=== PATIENT | female | born 1950 | race Caucasian/White ===

== ENCOUNTER 2021-12-07 06:20 | Emergency (ER) | payer MEDICARE, BC, SELFPAY ==
[2021-12-07 06:28] VITALS: BP 151/90; PULSE 73; TEMP 36.7; O2SAT 98; BMI 23.9
--- NOTE | 2021-12-07 06:34 | CRLHL7_ITS ---
For Patients: As a result of the Century Cures Act, medical imaging exams and procedure reports are released immediately into your electronic medical record. You may view this report before your referring provider. If you have questions, please contact your health care provider. INDICATION: Clinical signs and symptoms of acute stroke COMPARISON: February 07, 2019 TECHNIQUE: CT examination of the head was performed as axial sections without intravenous contrast. Images were obtained from the vertex of the skull through the skull base. Please note that all CT scans at this facility use dose modulation, iterative reconstruction, and/or weight-based dosing when appropriate to reduce radiation dose to as low as reasonably achievable. FINDINGS: The brain shows no sign of mass lesion, mass effect, hemorrhage, or edema. The ventricles and sulci are normal in appearance for the patient`s age. The visualized portions of the orbits are normal in appearance. The osseous structures are normal in their appearance with no sign of abnormality in the skull base or calvarium. Intracranial atherosclerosis similar in appearance to the prior exam. Discussed with Dr. Tawanna Su at 7 a.m. on December 07, 2021 IMPRESSION: No acute appearing finding when compared to February 07, [address] scans at this facility use dose modulation, iterative reconstruction, and/or weight-based dosing when appropriate to reduce radiation dose to as low as reasonably achievable. Dictated by Hakeem Yang MD @ 12/07/2021 7:03:17 AM (Electronically Signed)
--- NOTE | 2021-12-07 06:39 | ED.NEUROSD ---
HPI - Neuro Symptoms/Deficit General Time Seen by Provider: 06:30 Date Seen: 12/07/21 Chief Complaint: Neuro Symptoms/Altered Deficit Stated Complaint: Numbness in face and arms Time Seen by Provider: 12/07/21 06:26 Source: patient, RN notes reviewed and old records reviewed Mode of arrival: ambulatory Limitations: no limitations History of Present Illness HPI Narrative: Anju is a very pleasant 71-year-old female, retired pharmacist from [employer], who comes to the emergency room with complaints of sudden onset of right facial numbness, right neck pain and headache. Patient notes that she was up this morning at 0415 had the onset of numbness on her right side of her face. This was associated with some neck pain and is associated with a mild headache on the right side only. She also notes this radiates into her jaw. Patient notes that since December 02 she has been experiencing intermittent tingling of for bilateral 4th and 5th fingers as well as 4th and 5th toes. Right side greater than left side. She notes that she also continues to experience chills and shaking. She notes that these episodes have gotten to be much less but are still continuing. The onset of this was 2 years ago and she was seen at [facility] with full workup with unknown etiology with Neurology and Infectious Disease. One year ago she was flown out of [place] to a hospital with Cardiology while on a horseback riding trip for chest heaviness. She stated that they changed some of her medications but did not find out why she experience that. Patient denies any cough congestion. She will have occasional shortness of breath but nothing consistent. She denies a recent fever. She denies any recent trauma or tick bites. She states that her headache is mild and may be because she has not had morning caffeine as of yet. She has not taken any medications this morning. Patient does note that she has an essential tremor which is documented in her chart. She is currently taking atorvastatin metoprolol and hydrochlorothiazide as well as lisinopril aspirin daily. Patient is requesting sed rate for possible rheumatology workup. Also notes recent insurance physical reviewed and elevated proBNP. Related Data Home Medications Medication Instructions Recorded Confirmed aspirin 81 mg capsule 81 mg PO DAILY 12/07/21 12/07/21 atorvastatin 20 mg tablet mg 12/07/21 hydrochlorothiazide 25 mg tablet mg 12/07/21 lisinopril 20 mg tablet mg 12/07/21 metoprolol succinate 50 mg mg PO 12/07/21 tablet,extended release 24 hr mometasone 0.1 % topical ointment topical 12/07/21 Allergies Allergy/AdvReac Type Severity Reaction Status Date / Time Sulfa (Sulfonamide Allergy Mild Verified 12/07/21 07:22 Antibiotics) NSAIDS (Non-Steroidal AdvReac increase Verified 12/07/21 07:22 Anti-Inflamma blood pressure PFSH PFSH Social History Smoking Status: Never smoker How often do you have a drink containing alcohol: 4 or more times a week How many standard drinks containing alcohol do you have on a typical day: 1 or 2 How often do you have six or more drinks on one occasion: Never AUDIT-C Alcohol total score: 4 Non-prescribed substance use: denies use Exam Const: Vital Signs, click to edit/add: Vital Signs - 24 hr 12/07/21 06:28 12/07/21 08:00 12/07/21 07:30 Temperature 98.1 F Pulse Rate [Pulse Oximeter] 73 72 71 Respiratory Rate 18 18 Blood Pressure [Le ft Upper Arm] 151/90 H 145/88 H 147/86 H Pulse Oximetry 98 97 98 Oxygen Delivery Me thod Room Air Room Air Room Air Common normals: oriented x3, no limitations and alert General appearance: cooperative, well kempt and anxious (Initial shaking improved during the course of our discussion.) HENMT: Common normals: normocephalic, head/scalp atraumatic, hearing grossly normal bilaterally, external ears normal, EAC's normal and external nose normal Head and scalp: normocephalic and atraumatic Face and sinus: normal facial exam Nose: external nose normal External ear: external ears normal External auditory canal: EAC's normal Tympanic membrane: TM normal on the right Mouth: oral and palatal mucosa normal and tongue normal Other: Patient is noted to have increased fullness of the right cheek which is chronic for her. Full smile and motor intact on face. No evidence of lesions to indicate shingles Eye: Common normals: PERRL General eye: normal appearance of both eyes Pupil: PERRL Other: Peripheral vision intact. Pupils equal round reactive. EOM is full. Neck & C-Spine: Common normals: full ROM, no lymphadenopathy, supple and no meningeal signs General: trachea midline Other: Mild paracervical muscular tenderness on the right. Range of motion is full. No midline tenderness. Resp: Common normals: normal respiratory effort and clear to auscultation bilaterally Effort & inspection: able to speak in complete sentences Auscultation: clear to auscultation bilaterally Cardio: Common normals: regular rate and regular rhythm Rate: regular rate Rhythm: regular rhythm GI: Common normals: soft to palpation and non-tender Palpation: soft Extremity: Common normals: normal to inspection, full ROM and no pedal edema Neuro: Arlet Coma Scale: document GCS findings Lincoln coma scale eye opening: Spontaneous (4) Lincoln coma scale verbal response: Orientated (5) Lincoln coma scale motor response: Obey commands (6) Lincoln coma scale total score: 15 Common normals: oriented x3 Sensorium/orientation: alert Meningeal signs: no meningeal signs; no nuccal rigidity Coordination/balance: vfcl-di-wuxd test normal Speech: speech normal Motor exam: strength 5/5 throughout Coordination: sohg-jb-toft test normal Psych: Common normals: mental status grossly normal, thought process normal, cooperative and speech normal Appearance: well kempt Activity/motor behavior: appropriate eye contact Speech: normal speech Thought process: normal thought process Thought content: normal thought content Other: EOM is full and pupils are can round and reactive. Eyebrow raise smile symmetrical. Tongue is midline. Obeys commands. Upper extremity strength normal lower extremity strength normal. NIH SS 0 Course Course Hospital Course: At this time differential diagnosis is broad. It includes but is not limited to stroke, temporal arteritis, anxiety/panic reaction, acute coronary event, infection, electrolyte imbalance, spinal cord pathology. We will obtain a CT/CTA as well as obtain laboratory values to include CBC, comprehensive panel, proBNP, troponin, CRP, sed rate, urinalysis as well as chest x-ray and EKG. Reevaluation(s) Reevaluation #1: Patient noted to be improved. Residual tingling along the right upper eye. No eyelid droop. Visual acuity intact. Subjective improvement of symptoms per patient. Consultations Consultation #1: I spoke with radiologist regarding CT and CTA. He did note that there seemed to be prominence of the left MCA but in the absence of profound neurological deficits and comparison with previous CT he did not feel that this was an acute finding. Consultation #2: I had the pleasure of speaking with Dr. Omkar simon, neurologist from [place]. Dr. Simon was able to view the CT and CTA. Feels that it is within normal limits. At this time recommends follow-up with neurology as an outpatient for ongoing symptoms. Vital Signs Vital signs: Initial Vital Signs Temperature 98.1 F 12/07/21 06:28 Temperature Source Temporal Artery Scan 12/07/21 06:28 Pulse Rate 73 12/07/21 06:28 Pulse Rhythm 12/07/21 06:28 Blood Pressure 151/90 H 12/07/21 06:28 Blood Pressure Mean 110 12/07/21 06:28 Blood Pressure Position Supine 12/07/21 06:28 Pulse Oximetry 98 12/07/21 06:28 Oxygen Delivery Method 12/07/21 06:28 Vital Signs Temperature 98.1 F 12/07/21 06:28 Pulse Rate 73 12/07/21 06:28 Blood Pressure 151/90 H 12/07/21 06:28 Pulse Oximetry 98 12/07/21 06:28 Oxygen Delivery Method 12/07/21 06:28 Temperature 98.1 F 12/07/21 06:28 Pulse Rate 72 12/07/21 08:00 Respiratory Rate 18 12/07/21 08:00 Blood Pressure 145/88 H 12/07/21 08:00 Pulse Oximetry 97 12/07/21 08:00 Oxygen Delivery Method 12/07/21 08:00 MDM - Neuro Symptoms/Deficit MDM Narrative Medical decision making narrative: Facial and limb tingling-patient has had intermittent episodes of rigors and chills over the past 2 years. She did have that occur this morning and had the onset of new symptoms of of right facial tingling. Upon further reflection she did have abnormality of her right cheek many years ago with a fullness. [place] workup was unsuccessful in discovering etiology. Anju has not noticed worsening of this symptom. She is feeling better at this time and all of her lab workup is reassuring. We will have her depart home. She does bring up the fact that possibly this could be related to some panic or anxiety although she states she does not feel panicked. She lost her in April of this year suddenly and now has lost a good friend in her vmwxld-mv-prl who last week of cancer. She was supposed to go to a wedding this week in [place] but has decided not to go. I would agree that this may be a contributing factor to her symptoms. At this time she tells me that her vitamin-D is checked yearly and she is outside frequently. Will add magnesium in B12 as the symptoms today were sensation and not motor in nature. Disposition-patient will be discharged home. Notes that she has friends available to her if needed. She will return to the emergency room for worsening symptoms. Medical Records Attestation: I reviewed the patient's medical records. Lab Data Attestation: I reviewed the patient's lab results. Labs: Lab Results 12/07/21 12/07/21 12/07/21 Range/Units 06:40 06:40 06:40 WBC 9.51 (4.50-11.00) K/uL RBC 4.30 (4.00-5.20) m/uL Hgb 14.1 (12.0-16.0) gm/dL Hct 42.7 (33.0-51.0) % MCV 99 (80-100) fL MCH 33 (26-34) pg MCHC 33 (32-36) gm/dL RDW Coeff of Blayne 13.3 (11.5-15.5) % Plt Count 263 (140-440) K/uL Neut % (Auto) 77.8 H (42.0-72.0) % Lymph % (Auto) 13.6 L (20-44) % Coles % (Auto) 5.7 (0.0-11.0) % Eos % (Auto) 1.5 (0.0-7.0) % Baso % (Auto) 0.6 (0.0-3.0) % Neut # (Auto) 7.40 H (1.7-7.0) K/uL Lymph # (Auto) 1.30 (0.90-2.90) K/uL Coles # (Auto) 0.50 (0.00-0.90) K/UL Eos # (Auto) 0.14 (0.00-0.50) K/uL Baso # (Auto) 0.06 (0.00-0.30) K/uL Abs Immat Gran (auto) 0.08 (0.00-0.30) K/uL ESR 4 (2-20) mm/hr Sodium 139 (135-149) mmol/L Potassium 3.8 (3.6-5.1) mmol/L Chloride 99 (96-114) mmol/L Carbon Dioxide 32 (20-32) mmol/L BUN 21 (7-30) mg/dL Creatinine 0.7 (0.5-1.5) mg/dL Estimated GFR 92 ml/min Glucose 126 H (60-115) mg/dL Calcium 9.5 (8.4-10.6) mg/dL Total Bilirubin 0.7 (0.1-1.5) mg/dL AST 32 (12-35) U/L ALT 19 (4-35) U/L Alkaline Phosphatase 91 (40-150) U/L Troponin I < 0.01 L (0.01-0.04) ng/mL C-Reactive Protein < 0.5 L (0.5-1.0) mg/dL Total Protein 7.8 (6.0-8.3) g/dL Albumin 4.7 (3.3-5.0) g/dL Urine Color (Yellow) Urine Appearance (Clear) Urine pH (5.0-8.5) Ur Specific Laurel (1.000-1.030) Urine Protein (Negative) Urine Glucose (UA) (Negative) Urine Ketones (Negative) Urine Blood (Negative) Urine Nitrite (Negative) Urine Bilirubin (Negative) Urine Urobilinogen (0.2-1.0) Ur Leukocyte Esterase (Negative) Urine RBC (0-2) Urine WBC (0-5) Ur Squamous Epith Cells (None-Few) Urine Bacteria (None) SARS-CoV-2 (PCR) (Negative) Influenza Type A (PCR) (Negative) Influenza Type B (PCR) (Negative) 12/07/21 12/07/21 Range/Units 07:04 07:18 WBC (4.50-11.00) K/uL RBC (4.00-5.20) m/uL Hgb (12.0-16.0) gm/dL Hct (33.0-51.0) % MCV (80-100) fL MCH (26-34) pg MCHC (32-36) gm/dL RDW Coeff of Blayne (11.5-15.5) % Plt Count (140-440) K/uL Neut % (Auto) (42.0-72.0) % Lymph % (Auto) (20-44) % Coles % (Auto) (0.0-11.0) % Eos % (Auto) (0.0-7.0) % Baso % (Auto) (0.0-3.0) % Neut # (Auto) (1.7-7.0) K/uL Lymph # (Auto) (0.90-2.90) K/uL Coles # (Auto) (0.00-0.90) K/UL Eos # (Auto) (0.00-0.50) K/uL Baso # (Auto) (0.00-0.30) K/uL Abs Immat Gran (auto) (0.00-0.30) K/uL ESR (2-20) mm/hr Sodium (135-149) mmol/L Potassium (3.6-5.1) mmol/L Chloride (96-114) mmol/L Carbon Dioxide (20-32) mmol/L BUN (7-30) mg/dL Creatinine (0.5-1.5) mg/dL Estimated GFR ml/min Glucose (60-115) mg/dL Calcium (8.4-10.6) mg/dL Total Bilirubin (0.1-1.5) mg/dL AST (12-35) U/L ALT (4-35) U/L Alkaline Phosphatase (40-150) U/L Troponin I (0.01-0.04) ng/mL C-Reactive Protein (0.5-1.0) mg/dL Total Protein (6.0-8.3) g/dL Albumin (3.3-5.0) g/dL Urine Color Yellow (Yellow) Urine Appearance Clear (Clear) Urine pH 7.0 (5.0-8.5) Ur Specific Laurel 1.010 (1.000-1.030) Urine Protein Negative (Negative) Urine Glucose (UA) Negative (Negative) Urine Ketones Negative (Negative) Urine Blood 1+ A (Negative) Urine Nitrite Negative (Negative) Urine Bilirubin Negative (Negative) Urine Urobilinogen 0.2 (0.2-1.0) Ur Leukocyte Esterase 1+ A (Negative) Urine RBC 0-2 (0-2) Urine WBC 2-5 (0-5) Ur Squamous Epith Cells None (None-Few) Urine Bacteria None (None) SARS-CoV-2 (PCR) Negative SARS-CoV-2 (Negative) Influenza Type A (PCR) Negative PCR FLU A (Negative) Influenza Type B (PCR) Negative PCR FLU B (Negative) Imaging Data CT scan - head: Attestation: I have reviewed the pertinent imaging results. Radiologist's impression: CT head and CTA are without evidence of acute stroke findings. ECG Data ECG interpretation date: 12/07/21 Interpretation: Normal sinus rhythm at a rate of [address] or T-wave changes. Normal QT and ID interval. No evidence of PVCs or arrhythmia. Discharge Plan Discharge Clinical Impression: Facial tingling sensation Patient Disposition: Home, Self-Care Condition: Improved Additional Instructions: Continue daily aspirin. We will add B12 and magnesium orders. Follow-up with neurology for continued symptoms. Your sed rate today was 4. Normal is 2-20. Electrolyte panel within normal limits. Your troponin and CRP were negative. Urinalysis showed 0-2 red blood cells. We will send urinalysis for culture. Your COVID was negative. Return as needed for worsening symptoms. Prescriptions: No Action atorvastatin 20 mg tablet metoprolol succinate 50 mg tablet extended release 24 hr PO Label Comments: TAKE ONE TABLET BY MOUTH ONE TIME DAILY lisinopril 20 mg tablet hydrochlorothiazide 25 mg tablet mometasone 0.1 % ointment TOPICAL Label Comments: apply topically to the skin twice daily as needed aspirin 81 mg capsule 81 mg PO DAILY Follow Up/Referrals: Julisa Gamble MD [Primary Care Provider] - Stand Alone Forms: [facility] Info Instructions
[2021-12-07 06:47] LABS: Basophils Absolute Auto 0.06 K/uL (0.00-0.30); Basophils Percent Auto 0.6 % (0.0-3.0); Eosinophils Absolute Auto 0.14 K/uL (0.00-0.50); Eosinophils Percent Auto 1.5 % (0.0-7.0); Hematocrit 42.7 % (33.0-51.0); Hemoglobin* 14.1 gm/dL (12.0-16.0); Immature Granulocytes Abs Auto 0.08 K/uL (0.00-0.30); Lymphocytes Percent Auto 13.6 % (20-44); Mean Corpuscular HGB Conc 33 gm/dL (32-36); Mean Corpuscular Hemoglobin 33 pg (26-34); Mean Corpuscular Volume 99 fL (80-100); Monocytes Percent Auto 5.7 % (0.0-11.0); Neutrophils Percent Auto 77.8 % (42.0-72.0); Platelet Count* 263 K/uL (140-440); RDW Coefficient of Variation % 13.3 % (11.5-15.5); White Blood Count* 9.51 K/uL (4.50-11.00)
[2021-12-07 06:54] LABS: Slide Review Reflex No
--- NOTE | 2021-12-07 06:55 | CRLHL7_ITS ---
For Patients: As a result of the Cures Act, medical imaging exams and procedure reports are released immediately into your electronic medical record. You may view this report before your referring provider. If you have questions, please contact your health care provider. INDICATION: Chills COMPARISON: February 07, 2019 TECHNIQUE: Single-view portable study FINDINGS: TUBES AND LINES: None. HEART AND MEDIASTINUM: The heart size is normal. The mediastinal contour appears normal for patient age. LUNGS AND PLEURAL SPACES: The lungs appear normal.The pleural spaces are unremarkable. OSSEOUS STRUCTURES: Age-appropriate appearance. No acute focal finding. IMPRESSION: No evidence of active pulmonary disease. Dictated by Hakeem Yang MD @ 12/07/2021 7:26:59 AM (Electronically Signed)
[2021-12-07 07:04] LABS: Albumin* 4.7 g/dL (3.3-5.0); Chloride* 99 mmol/L (96-114); Potassium* 3.8 mmol/L (3.6-5.1); Sodium* 139 mmol/L (135-149)
[2021-12-07 07:06] LABS: Creatinine* 0.7 mg/dL (0.5-1.5); Estimated Glomerular Filt Rate 92 ml/min
[2021-12-07 07:07] LABS: Alanine Aminotransferase* 19 U/L (4-35); Alkaline Phosphatase* 91 U/L (40-150); Aspartate Amino Transferase* 32 U/L (12-35); Bilirubin Total* 0.7 mg/dL (0.1-1.5); Blood Urea Nitrogen* 21 mg/dL (7-30); Carbon Dioxide* 32 mmol/L (20-32); Total Protein* 7.8 g/dL (6.0-8.3)
[2021-12-07 07:08] LABS: Calcium* 9.5 mg/dL (8.4-10.6); Glucose* 126 mg/dL (60-115)
[2021-12-07 07:19] LABS: Appearance Urine Clear (Clear); Bilirubin Urine Negative (Negative); Blood Urine 1+ (Negative); Color Urine Yellow (Yellow); Glucose Urine Negative (Negative); Ketones Urine Negative (Negative); Leukocyte Esterase Urine 1+ (Negative); Nitrite Urine Negative (Negative); Protein Urine Negative (Negative); Urobilinogen Urine 0.2 (0.2-1.0)
[2021-12-07 07:22] LABS: C Reactive Protein* < 0.5 mg/dL (0.5-1.0); Troponin I* < 0.01 ng/mL (0.01-0.04)
[2021-12-07 07:30] VITALS: BP 147/86; PULSE 71; RESP 18; O2SAT 98
[2021-12-07 07:31] LABS: RBC Urine 0-2 (0-2)
[2021-12-07 08:00] VITALS: BP 145/88; PULSE 72; RESP 18; O2SAT 97
[2021-12-07 08:03] LABS: PCR FLU A Negative PCR FLU A (Negative); PCR FLU B Negative PCR FLU B (Negative)
[2021-12-07 08:08] LABS: SARS PCR* Negative SARS-CoV-2 (Negative)
[2021-12-07 08:30] VITALS: BP 141/80; PULSE 73; O2SAT 99
[2021-12-07 08:30] LABS: Erythrocyte SedimentationRate* 4 mm/hr (2-20)
[2021-12-07 09:00] VITALS: BP 152/82; PULSE 76; RESP 18; O2SAT 98
[2021-12-07 09:35] LABS: NT Pro B Type NatriureticPept* 115 PG/mL (0-125)
[2021-12-07 10:15] LABS: Vitamin B12* 288 pg/mL (243-894)
== END 2021-12-07 09:24 | disposition home or self-care (01) ==
PROVIDERS: Emergency Provider Family Medicine; PCP Internal Medicine
DX: R20.2 Paresthesia of skin (principal)
CPT/HCPCS: 36415; 70450; 70496; 70498; 71045; 80053; 81003; 81015; 82607; 83735; 83880; 84484; 85025; 85651; 86140; 87502; 87635; 93005; 99284; 99285; Q9967

== ENCOUNTER 2022-08-03 08:00 | Outpatient (CLI) | payer MEDICARE, BC, SELFPAY ==
--- OUTSIDE RECORDS SUMMARY | 2022-08-04 11:03 | XMS_ITS | Continuity of Care Document ---
Author Name Unknown Organization [facility] Address [address] [place] [phone] Phone Care Team Providers Care Home Day Care Provider Name Role Phone Quinten Hernandez MD Unavailable Unavailable Procedures Procedure Date STRESS TTE ONLY CARDIO STRESS TEST -SUPERVISION CARDIO STRESS TEST -INTERP & RPT 2020 OBSERV/HOSP SAME DATE EMERGENCY DEPT VISIT Advance Directives Directive Yes / No Effective Date File Name No Information Encounters Encounter Description Practice Location Reason(s) For Visit Diagnoses Date Provider Providers Copied on Encounter [facility], [address] [place] [address], [id number], tel:[phone] [facility] No Information David Shipley. [address] [place] [address], [place], [place], [id number], . tel:[phone] [facility], [address] [place] [address], [id number], tel:[phone] [facility] No Information Cameron Waite. [address] [place] [address], [id number] [place], [id number], [place]. tel:[phone] Referring Provider: Ravindra Barnes, [address] [place] [address] [id number], [place], [id number]. tel:[phone] OBSERV/HOSP SAME DATE [facility], [address] [place] [address], [id number], tel:[phone] [facility] No Information Prabhjot Carney. [address] [place] [address], [place], [place], [id number], . tel:[phone] EMERGENCY DEPT VISIT [facility], [address] [place] [address], [id number], tel:[phone] [facility] No Information Brady Lamar. [address] [place] [address], [id number], [place]. tel:[phone] Family History Family Member Type Diagnosis Age At Onset No Information Payers Payer name Insurance type Covered democrat ID Garrett lopez(s) Medicare MB [id number] [facility] Out of State [id number] Social History Type Description Quantity Date Captured Comments Sex Female Smoking Status No Information Chief Complaint And Reason For Visit No Information Reason For Referral Reason For Referral No Information Plan Of Treatment Date Type Action Status No Information History Of Present Illness Encounter Date Complaint History Of Prese nt Illness No Information Functional Status Date Functional Assessmen t No Information Instructions Date Instruction Additional Infor mation No Information Assessments Type Assessment Date No Information Patient Care Teams Name Effective Dates (start - stop) Status Members No Information
== END 2022-08-03 08:01 | disposition home or self-care (01) ==
LOC: NFLDREF 08-04 10:57
PROVIDERS: PCP Internal Medicine; Referring Provider Internal Medicine; Visit Provider Internal Medicine
DX: E78.5 Hyperlipidemia, unspecified (principal); I10 Essential (primary) hypertension; M81.0 Age-related osteoporosis without current pathological fracture; Z13.9 Encounter for screening, unspecified
CPT/HCPCS: 80048; 80061; 82306

== ENCOUNTER 2022-10-20 12:56 | Outpatient (CLI) | payer MEDICARE, BC, SELFPAY ==
--- OUTSIDE RECORDS SUMMARY | 2022-10-20 12:58 | XMS_ITS | Continuity of Care Document ---
Author Name Unknown Organization [facility] Address [address] [place] [phone] Phone Care Team Providers Care Ladies Underwear Operator Name Role Phone Quinten Hernandez MD Unavailable Unavailable Procedures Procedure Date STRESS TTE ONLY CARDIO STRESS TEST -SUPERVISION CARDIO STRESS TEST -INTERP & RPT 2020 OBSERV/HOSP SAME DATE EMERGENCY DEPT VISIT Advance Directives Directive Yes / No Effective Date File Name No Information Encounters Encounter Description Practice Location Reason(s) For Visit Diagnoses Date Provider Providers Copied on Encounter [facility], [address] [place] [address], [id number], tel:[phone] [facility] No Information David Shipley. [address] [place] [address], [place], [place], [id number], . tel:[phone] [facility], [address] [place] [address], [id number], tel:[phone] [facility] No Information Cameron Waite. [address] [place] [address], [id number] [place], [id number], [place]. tel:[phone] Referring Provider: Ravindra Barnes, [address] [place] [address] [id number] 0BN, [place], [id number]. tel:[phone] OBSERV/HOSP SAME DATE [facility], [address] [place] [address], [id number], tel:[phone] [facility] No Information Prabhjot Carney. [address] [place] [address], [place], [place], [id number], . tel:[phone] EMERGENCY DEPT VISIT [facility], [address] [place] [address], [id number], tel:[phone] [facility] No Information Brady Lamar. [address] [place] [address], [id number], [place]. tel:[phone] Family History Family Member Type Diagnosis Age At Onset No Information Payers Payer name Insurance type Covered alliance party ID Garrett lopez(s) Medicare MB [id number] [facility] Out of State [id number] Social History Type Description Quantity Date Captured [...]
--- NOTE | 2022-10-20 13:00 | CRLHL7_ITS ---
For Patients: As a result of the Century Cures Act, medical imaging exams and procedure reports are released immediately into your electronic medical record. You may view this report before your referring provider. If you have questions, please contact your health care provider. DXA BONE MINERAL DENSITY STUDY Reason for exam: Osteoporosis. Current height (in): 63. Weight (lb): 140. Menopause age: 44. Ethnicity: White. 1. Have you had a previous hip or vertebral fracture? No. 2. Have you had any fractures during your adult life which did not result from significant trauma (e.g., auto accident)? No. 3. Did either of your parents have a hip fracture? No. 4. Do you smoke? No. 5. Have you ever taken Glucocorticoids? Yes. 6. Do you have rheumatoid arthritis? No. 7. Do you have secondary osteoporosis? No. 8. Do you drink 3 or more alcoholic drinks per day? No. 9. Are you being treated for osteoporosis? No. 10. Have you ever taken any of the following medications: Actonel, Evista, Fosamax, Miacalcin, Reclast, Boniva, Forteo, HRT (i.e. estrogen/hormone therapy), Protelos, Prolia, Vitamin D, Calcium, other ??? please specify. ANSWER: Yes, vitamin D, calcium. 11. Do you have any of the following medical conditions: Anorexia or bulimia, asthma or emphysema, end stage renal disease, hyperparathyroidism, any seizure disorders, cancer, inflammatory bowel diseases, hysterectomy, other ??? please specify. ANSWER: No. 12. What was your maximum height (inches)? 64. 13. Do you perform weight bearing exercise regularly? Yes. 14. Do you regularly consume dairy products? Yes. 15. Do you drink caffeinated beverages? Yes. 16. At what age did your period start? 13. 17. Are you premenopausal? No. 18. How many full term pregnancies have you had? 3. 19. Have you ever missed your period for more than 6 months in a row (not including or menopause)? No. TECHNIQUE: Bone mineral density study was performed using the [employer]. FINDINGS: The results of the study expressed as bone mineral density (BMD) are as follows: Lumbar spine L1, L2, L4: BMD: 0.884 g/cm2. T-score: -1.4. Z-score: 0.9. Neck Left: BMD: 0.552 g/cm2. T-score: -2.7. Z-score: -0.8. Right: BMD: 0.556 g/cm2. T-score: -2.6. Z-score: -0.7. Total Left: BMD: 0.669 g/cm2. T-score: -2.2. Z-score: -0.6. Right: BMD: 0.657 g/cm2. T-score: -2.3. Z-score: -0.7. IMPRESSION: Osteoporosis. *Comparison exams done prior to 09/2019 were performed on different unit, ONOFFMIX (?). COMPARISON: Compared with scan of 07/16/2020, the bone mineral density has increased by 0.4 percent at the spine and increased by 0.7 percent at the hip. Compared with scan of 01/11/2016, the bone mineral density has increased by 2.4 percent at the spine and decreased by 4.9 percent at the hip. Hu Roach M.D. Diagnostic Radiologist [email or web address] RIZWAN/Dictated by: Hu Roach MD @ 10/20/2022 1:56:00 PM (Electronically Signed)
--- NOTE | 2022-10-20 14:00 | CRLHL7_ITS ---
For Patients: As a result of the Century Cures Act, medical imaging exams and procedure reports are released immediately into your electronic medical record. You may view this report before your referring provider. If you have questions, please contact your health care provider. BILATERAL SCREENING MAMMOGRAM WITH COMPUTER-AIDED DETECTION AND TOMOSYNTHESIS TECHNIQUE: CC and MLO views were obtained. These mammographic images have been obtained using full-field digital technique. These mammographic images were interpreted with the benefit of computer-aided detection. Breast Tomosynthesis was used in this interpretation. COMPARISON FILM: 07/16/20, 01/23/17, 10/06/14. FINDINGS: The breasts are heterogeneously dense, which may obscure small masses IMPRESSION: There is no radiographic evidence for malignancy. ASSESSMENT: BI-RADS Category 1: Negative RECOMMENDATION: Routine screening mammogram in 1 year. A lay language report of this examination will be provided to the patient. Hu Roach M.D. Diagnostic Radiologist [email or web address] RIZWAN/Dictated by: Hu Roach MD @ 10/21/2022 9:01:00 AM (Electronically Signed)
== END 2022-10-20 12:57 | disposition home or self-care (01) ==
PROVIDERS: PCP Internal Medicine; Visit Provider Internal Medicine
DX: Z12.31 Encounter for screening mammogram for malignant neoplasm of breast (principal); R92.2 Inconclusive mammogram; M81.0 Age-related osteoporosis without current pathological fracture
CPT/HCPCS: 77063; 77067; 77080

== ENCOUNTER 2023-02-21 11:57 | Outpatient (CLI) | payer MEDICARE, BC, SELFPAY ==
--- OUTSIDE RECORDS SUMMARY | 2023-02-21 11:59 | XMS_ITS | Continuity of Care Document ---
Author Name Unknown Organization [facility] Address [address] [place] [phone] Phone Care Team Providers Care Network Relations Consultant Name Role Phone Quinten Hernandez MD Unavailable Unavailable Procedures Procedure Date STRESS TTE ONLY CARDIO STRESS TEST -SUPERVISION CARDIO STRESS TEST -INTERP & RPT 2020 OBSERV/HOSP SAME DATE EMERGENCY DEPT VISIT Advance Directives Directive Yes / No Effective Date File Name No Information Encounters Encounter Description Practice Location Reason(s) For Visit Diagnoses Date Provider Providers Copied on Encounter [facility], [address] [place] [address], [id number], tel:[phone] [facility] No Information David Shipley. [address] [place] [address], [place], [place], [id number], . tel:[phone] [facility], [address] [place] [address], [id number], tel:[phone] [facility] No Information Cameron Waite. [address] [place] [address], [id number] [place], [id number], [place]. tel:[phone] Referring Provider: Ravindra Barnes, [address] [place] [address] [id number] 0BN, [place], [address]. tel:[phone] OBSERV/HOSP SAME DATE [facility], [address] [place] [address], [id number], tel:[phone] [facility] No Information Prabhjot Carney. [address] [place] [address], [place], [place], [id number], . tel:[phone] EMERGENCY DEPT VISIT [facility], [address] [place] [address], [id number], tel:[phone] [facility] No Information Brady Lamar. [address] [place] [address], [id number], [place]. tel:[phone] Family History Family Member Type Diagnosis Age At Onset No Information Payers Payer name Insurance type Covered constitution party ID Authorsejal lopez(s) Medicare MB [id number] [facility] Out of State [id number] Social History Type Description Quantity Date Captured Comments Sex Female Smoking Status No Information Chief Complaint And Reason For Visit No Information Reason For Referral Reason For Referral No Information History Of Present Illness Encounter Date Complaint History Of Prese nt Illness No Information Functional Status Date Functional Assessmen t No Information Instructions Date Instruction Additional Infor mation No Information Assessments Type Assessment Date No Information Patient Care Teams Name Effective Dates (start - stop) Status Members No Information
== END 2023-02-21 11:58 | disposition home or self-care (01) ==
PROVIDERS: PCP Internal Medicine; Visit Provider Internal Medicine
DX: R19.7 Diarrhea, unspecified (principal); I10 Essential (primary) hypertension; A09 Infectious gastroenteritis and colitis, unspecified
CPT/HCPCS: 80053

== ENCOUNTER 2023-02-23 13:33 | Outpatient (CLI) | payer MEDICARE, BC, SELFPAY ==
--- OUTSIDE RECORDS SUMMARY | 2023-02-27 07:15 | XMS_ITS | Continuity of Care Document ---
Author Name Unknown Organization [facility] Address [address] [place] [phone] Phone Care Team Providers Care Media Relations Intern Name Role Phone Quinten Hernandez MD Unavailable Unavailable Procedures Procedure Date STRESS TTE ONLY CARDIO STRESS TEST -SUPERVISION CARDIO STRESS TEST -INTERP & RPT 2020 OBSERV/HOSP SAME DATE EMERGENCY DEPT VISIT Advance Directives Directive Yes / No Effective Date File Name No Information Encounters Encounter Description Practice Location Reason(s) For Visit Diagnoses Date Provider Providers Copied on Encounter [facility], [address] [place] [address], [id number], tel:[phone] [facility] No Information David Shipley. [address] [place] [address], [place], [place], [id number], . tel:[phone] [facility], [address] [place] [address], [id number], tel:[phone] [facility] No Information Cameron Waite. [address] [place] [address], [id number] [place], [id number], [place]. tel:[phone] Referring Provider: Ravindra Barnes, [address] [place] [address] [id number] 0BN, [place], [address]. tel:[phone] OBSERV/HOSP SAME DATE [facility], [address] [place] [address], [id number], tel:[phone] [facility] No Information Prabhjot Carney. [address] [place] [address], [place], [place], [id number], . tel:[phone] EMERGENCY DEPT VISIT [facility], [address] [place] [address], [id number], tel:[phone] [facility] No Information Brady Lamar. [address] [place] [address], [id number], [place]. tel:[phone] Family History Family Member Type Diagnosis Age At Onset No Information Payers Payer name Insurance type Covered republican ID Authorsejal lopez(s) Medicare MB [id number] [facility] Out of State [id number] Social History Type Description Quantity Date Captured [...]
== END 2023-02-23 13:34 | disposition home or self-care (01) ==
LOC: NFLDREF 02-27 07:14
PROVIDERS: PCP Internal Medicine; Referring Provider Internal Medicine; Visit Provider Internal Medicine
DX: A09 Infectious gastroenteritis and colitis, unspecified (principal)
CPT/HCPCS: 87045; 87046; 87177; 87209; 87427

== ENCOUNTER 2023-07-05 08:02 | Outpatient (CLI) | payer MEDICARE, BC, SELFPAY ==
--- NOTE | 2023-07-05 08:15 | MR_ITS ---
Facility:?[facility] Patient ID:?[id number] Site Patient ID:?[id number]. Site :?1950 Study:?MRI-Spine Lumbar w/o-07/05/2023 8:37:59 AM Ordering Physician:Shorty Stephens Final Report: Indication: Spondylolisthesis. Technique: Multiplanar, multisequence MRI of the lumbar spine was performed without intravenous contrast. Comparison: Lumbar spine radiographs 07/04/2023. Findings: There are 5 lumbar-type vertebral segments are identified. Small hemangioma within the L1 vertebral body. Vertebral body heights are maintained. The conus medullaris terminates at L1, normal. Cauda equina appears unremarkable. T12-L1: Disc degeneration. Grade 1 degenerative retrolisthesis. Mild spinal canal narrowing. Mild neural foraminal narrowing. L1-2: Disc degeneration. Grade 1 degenerative retrolisthesis. Mild spinal canal narrowing. Mild neural foraminal narrowing. Mild facet arthropathy. L2-3: Disc degeneration. Disc bulge with facet hypertrophy results in mild spinal canal narrowing. Ugar-sr-lzkgpipt left and mild right neural foraminal narrowing. L3-4: Disc degeneration. Disc bulge coupled with ligamentum flavum thickening and facet hypertrophy results in bflp-wc-krnvczme spinal canal narrowing. Mild neural foraminal narrowing. Moderate facet arthropathy. L4-5: Grade 2 anterolisthesis. Chronic right pars interarticularis defect. Uncovering the disc with facet hypertrophy results in severe spinal canal stenosis. Lwcr-tm-dbbtrdrd neural foraminal narrowing. Severe facet arthropathy. L5-S1: No spinal canal narrowing. Mild left neural foraminal narrowing. Right neural foramen is patent. Moderate facet arthropathy. Mild sacroiliac joint osteoarthritis. Impression: 1. At L4-5, grade 2 anterolisthesis. Chronic right pars interarticularis defect. Severe spinal canal stenosis. 2. At L3-4, azmx-cn-mexhpkfn spinal canal with mild neural foraminal narrowing. 3. Milder spondylosis at the remaining lumbar levels. Dictated by Inocencio Morris MD @ 07/05/2023 3:32:47 PM Signed by:?Inocencio Morris MD @07/05/2023 3:32:47 PM (Electronic Signature)
== END 2023-07-05 08:03 | disposition home or self-care (01) ==
LOC: MRI 08:03
PROVIDERS: PCP Internal Medicine; Visit Provider Orthopaedic Surgery Sports Medicine
DX: M43.16 Spondylolisthesis, lumbar region (principal); M54.9 Dorsalgia, unspecified; M48.061 Spinal stenosis, lumbar region without neurogenic claudication; M47.896 Other spondylosis, lumbar region
CPT/HCPCS: 72148

== ENCOUNTER 2023-09-06 09:00 | Outpatient (RCR) | payer MEDICARE, BC, SELFPAY | END 2023-10-24 09:46 | disposition home or self-care (01) | PROVIDERS: PCP Internal Medicine; Visit Provider Orthopaedic Surgery Sports Medicine | DX: M76.32 Iliotibial band syndrome, left leg (principal); Z96.652 Presence of left artificial knee joint; Z51.89 Encounter for other specified aftercare | CPT/HCPCS: 80048; 80061; 82306; 97110; 97140; 97162 ==

== ENCOUNTER 2023-09-12 06:59 | Outpatient (CLI) | payer MEDICARE, BC, SELFPAY ==
--- OUTSIDE RECORDS SUMMARY | 2023-09-12 07:02 | XMS_ITS | Clinical Summary ---
Author Name Unknown Organization [facility] Address [place], [place] [address] Care Team Providers Care Floor Covering Printer Name Role Phone Julisa Gamble MD Primary Care Provider [phone] Allergies Active Allergy Reactions Criticality Noted Date Comments Sulfa (Sulfonamide Antibiotics) Myalgia Unknown 08/23 Medications Medication Sig Dispensed Refills Start Date End Date Status aspirin chewable 81 mg chewable tablet Take 1 tablet by mouth once daily with a meal. 0 05/23/2017 Active lisinopril (PRINIVIL; ZESTRIL) 30 mg tablet Take 1 tablet by mouth once daily. 0 05/23/2017 Active atenolol (TENORMIN) 25 mg tablet Take 1 tablet by mouth once daily. 0 05/23/2017 Active hydroCHLOROthiazide 12.5 mg capsule Take 1 capsule by mouth once daily. 0 05/23/2017 Active Active Problems Problem Noted Date Diagnosed Date Diverticulitis 05/23/2017 Overview: Colonoscopy 04/2017 diverticulosis, repeat in 10 years Encounters Date Type Department Care Team Description 09/08/2023 Transcribe Orders [facility] [address] [place] [address] Seth Addison MD from Last 3 Months Social History Tobacco Use Types Packs/Day Years Used Date Smoking Tobacco: Never Smokeless Tobacco: Never Social Connections Answer Date Recorded Frequency of Communication with Friends and Fami ly Not on file 04/24/2021 Financial Resource Strain Answer Date R ecorded Difficulty of Paying Living Expenses Not on file 04/24/2021 Difficulty of Paying Living Expenses Not on file 04/24/2021 Sex and Gender Information Value Date Recorded Sex Assigned at Not on file Gender Identity Not on file Sexual Orientation Not on file Obstetrics History Plan of Treatment Upcoming Encounters Date Type Department Care Team (Late st Contact Info) Description 09/12/2023 7:40 AM CDT Office Visit [facility] [address] [place] [address] Seth Addison MD [address] [place] [phone] Health Maintenance Due Date Last Done Comments Tdap 1961 Depression screening for age 12+ 1962 BMI (ht and wt on same day) for age 18+ 1968 Hepatitis C screening for age 18-79 1968 Tetanus booster 1970 Lipids for age 45-75 07/28/1995 Mammogram for age 45-75 07/28/1995 Zoster (shingles) series for age 50+ (1 of 2) 2000 DEXA/DXA scan for age 65+ 07/28/2015 Medicare Wellness for age 65+ 07/28/2015 Pneumococcal series for age 65+ (1 of 1 - PCV) 07/28/2015 COVID-19 vaccine series ( - 2022-24 season) 2022 Influenza for age 65+ 12/24/2023 Colonoscopy through age 75 05/23/202705/23, 05/23/2017, 05/23/2017 Procedures Procedure Name Priority Date/Time Associated Diagnosis Comments COLONOSCOPY 05/23/2017 1:22 PM TRASH COLLECTOR SUPERVISOR from Last 3 Months or Most Recently Relevant to Health Maintenance Results * COLONOSCOPY (05/23/2017 1:22 PM TRASH COLLECTOR SUPERVISOR) 05/23/2017 1:22 PM TRASH COLLECTOR SUPERVISOR Narrative Transcriptions Nadeem Robertson MD - 05/23/2017 2:19 PM CST Patient Name: Anju aJma Procedure Date: 05/23/2017 Gender: Female Date of : 1950 Admit Type: Outpatient Procedure: Colonoscopy Proceduralist: Nadeem Robertson MD , Elizabeth Dong (Nurse) Indications/Pre-Op Diagnosis: Screening for colorectal malignant neoplasm, Last colonoscopy: 2007 Medications: Fentanyl 150 micrograms IV, Midazolam 3 mgIV, The level of sedation administered wasmoderate Procedure Description: The patient had risks, benefits and alternatives explained to andgave informed consent. The patient had a stable cardiopulmonary status and judged an adequate candidate for conscious sedation. The [id number] was passed through the anus and advanced tothe cecum, identified by appendiceal orifice and ileocecal valve. The colonoscopy was performed without difficulty. The patient toleratedthe procedure well. The quality of the bowel preparation was excellent.The ileocecal valve, appendiceal orifice, and rectum were photographed. Complications: No immediate complications. Estimated Blood Loss & Specimen: Estimated blood loss: none. Specimen collected - None Findings: The perianal and digital rectal examinations were normal. Multiple small-mouthed diverticula were found in the sigmoid colon. There was evidence of diverticular spasm. The exam was otherwise without abnormality on direct and retroflexion views. Impressions/Post-Op Diagnosis: - Moderate diverticulosis in the sigmoid colon. There was evidence of diverticular spasm. - The examination was otherwise normal on direct and retroflexionviews. - No specimens collected. Recommendation: - Patient has a contact number available for emergencies. The signsand symptoms of potential delayed complications were discussed with the patient. Return to normal activities tomorrow. Written discharge instructions were provided to the patient. - Resume previous diet. - Continue present medications. - Repeat colonoscopy in 10 years for screening purposes. Moderate Sedation: Moderate (conscious) sedation was administered by the endoscopy nurse and supervised by the endoscopist. The following parameters were monitored: oxygen saturation, heart rate, respiratory rate, blood pressure, adequacy of pulmonary ventilation and reponse to care. [facility] and nursing notes for moderate sedation details. Total physician intraservice time was 25 minutes. Nadeem Robertson MD 05/23/2017 2:18:47 PM This report has been signed electronically. Note Initiated On: 05/23/2017 1:22 PM Procedure Code(s): --- Professional --- 09926, Colonoscopy, flexible; diagnostic, including collection of specimen(s) bybrushing or washing, when performed (separateprocedure) Diagnosis Code(s): --- Professional --- Z12.11, Encounter for screening formalignant neoplasm of colon K57.30, Diverticulosis of large intestine without perforation or abscess withoutbleeding CPT copyright 2016 [employer]. All rights reserved. The codes documented in this report are preliminary and upon medical insurance coder reviewmay be revised to meet current compliance requirements. Scope In: 1:49:37 PM Scope Withdrawal Time 0 hours 8 minutes 35 seconds Scope Out: 2:12:25 PM Nadeem Robertson MD PROCEDURE ORD from Last 3 Months or Most Recently Relevant to Health Maintenance Care Teams Floor Covering Printer Relationship Specialty Start Date End Date Julisa Gamble MD [address] [place] [address] PCP - General Internal Medicine 05/23/17
--- OUTSIDE RECORDS SUMMARY | 2023-09-12 07:02 | XMS_ITS | Clinical Summary ---
Author Name Unknown Organization [facility] Address [address] [place] [address] Care Team Providers Care Allergy And Immunology Specialist Name Role Phone Unavailable Primary Care Provider Unavailabl e Source Comments You are receiving this document as you are listed as the primary care provider,follow-up provider, or the patient has been referred to you for consultation.This is in compliance with the Medicare and[facility] EHR Incentive Program,which states Providers who transition their patient to another setting of careor provider of care or refers their patient to another provider of care shouldprovide summary care record for each transition of care or referral. [employer] Allergies Active Allergy Reactions Criticality Noted Date Comments Sulfa Antibiotics Muscle Aches/Weakness 022 Medications Medication Sig Dispensed Refills Start Date End Date Status Aspirin 81 MG CAPS Active lisinopril (ZESTRIL) 20 MG tablet two times a day. Active Metoprolol Succinate 50 MG CS24 daily. Active hydroCHLOROthiazide 12.5 MG capsule daily. Active atorvastatin (LIPITOR) 20 MG tablet Active Psyllium (METAMUCIL) 28.3 % powder Active Active Problems Problem Noted Date Diagnosed Date Hypertension 06/28/2021 Immunizations Name Administration Dates Next Due Pfizer Monovalent 12+ Purple Top 02/02/2021,05/26,05/30/2020 Social History Tobacco Use Types Packs/Day Years Used Date Smoking Tobacco: Never Assessed Sex and Gender Information Value Date Recorded Sex Assigned at Not on file Gender Identity Not on file Sexual Orientation Not on file Last Filed Vital Signs Vital Sign Reading Time Taken Comments Blood Pressure 140/82 06/29/2021 12:56 PM REHAB CONSULTANT Pulse 80 06/29/2021 12:56 PM REHAB CONSULTANT Temperature 36.9 ??C (98.5 ??F) 06/29/2021 12:[address] Respiratory Rate - - Oxygen Saturation - - Inhaled Oxygen Concentration - - Weight - - Height - - Body Mass Index - - Plan of Treatment Health Maintenance Due Date Last Done Comments Colon Cancer Screening Plan Due 1950 Hep C Screening (Preventive Services) 1950 Medicare Annual Wellness Visit 1950 Mammogram 1950 Cholesterol 07/28/1995 Dexa 07/28/2015 COVID-19 Vaccine ( season) 2022 02/02/2021, 06/20/2020, 05/30/2020 Influenza (Season Ended) 2023 021, 02/05/2020, 02/05/2020, Additional history exists DTaP/Tdap/Td (4 - Tdap) 11/27/2028 11/28/19 19, 04/25/2009, 09/03/2008, Additional history exists Pneumococcal 65+ Yrs Completed 01/09/2017, 01/07/20 16 Zoster/Shingles Completed 10/18/2019, 02/23, 08/19/2013 HepA Aged Out No longer eligi ble based on patient's age to complete this topic HepB Aged Out No longer eligi ble based on patient's age to complete this topic Hib Aged Out No longer eligi ble based on patient's age to complete this topic IPV (Polio) Aged Out No longer eligi ble based on patient's age to complete this topic MCV4 Aged Out No longer eligi ble based on patient's age to complete this topic
== END 2023-09-12 07:00 | disposition home or self-care (01) ==
LOC: INJ CL 07:00
PROVIDERS: PCP Internal Medicine; Visit Provider Family Medicine
DX: M54.16 Radiculopathy, lumbar region (principal); M48.062 Spinal stenosis, lumbar region with neurogenic claudication
CPT/HCPCS: 64483; J1100; Q9966

== ENCOUNTER 2024-05-16 10:34 | Outpatient (CLI) | payer MEDICARE, BC, SELFPAY | END 2024-05-16 10:35 | disposition home or self-care (01) | PROVIDERS: PCP Internal Medicine; Visit Provider Internal Medicine | DX: I10 Essential (primary) hypertension (principal); M81.0 Age-related osteoporosis without current pathological fracture; E78.5 Hyperlipidemia, unspecified | CPT/HCPCS: 80048; 80061; 82306 ==

== ENCOUNTER 2024-08-15 09:31 | Outpatient (CLI) | payer MEDICARE, BC, SELFPAY | END 2024-08-15 09:32 | disposition home or self-care (01) | PROVIDERS: PCP Internal Medicine; Visit Provider Internal Medicine | DX: M79.12 Myalgia of auxiliary muscles, head and neck (principal); M79.18 Myalgia, other site | CPT/HCPCS: 82550; 86140 ==